=== PATIENT | female | born 1980 | race Caucasian/White ===

== ENCOUNTER 2018-03-12 22:00 | Emergency (ER) | payer SELFPAY ==
[~2018-03-12] VITALS: Ht 154.9 cm; Wt 50.0 kg
[~2018-03-12 22:00] MED LIST: AMOXICILLIN/CLA1 TA1; ATIVAN 0.50.5 MG/TAB PO; CALCIUM 500500 M2 PO; CELEXA10 MG PO; CLARITIN 1010 MG/TAB PO; DUO-KAPS1 CAP PO; EPIPEN 2-PAK1 MG/ML IM; FOLIC ACID 11 MG/TA1 PO; HYDROCODONE/APAP; IBU-TAB800 MG PO; K-DUR 10 MEQ T10 MEQ PO; K-DUR20 MEQ PO; LEXAPRO20 MG PO; LIBRIUM 25M25 MG/CAP PO; MULTIVITAMIN FO1 CAP PO; NEXIUM 40MG40 MG PO; NO HOME MEDICATIONS; NORCO 325 MG-7.1 TAB PO; OXYCODONE5 MG PO; PERCOCET 325 MG1 TAB PO; PHENERGAN 25 TA25 MG PO; PREDNISONE20 MG PO; PRENATAL PO; THIAMINE 1100 MG/TAB PO; TRANSDERM0.33 MG/24 TD; VITAMIN B COMPL1 T16 PO; XANAX 0.5MG0.5 MG PO
[2018-03-12 22:03] VITALS: TEMP 97
[2018-03-12 22:37] LABS: BASO % 0.8 % (0.0-2.0); EOS % 0.6 % (0-4.0); GRAN # 2.4 (1.4-6.5); GRAN % 46.6 % (42.2-75.2); HEMATOCRIT 42.5 % (37.0-47.0); HEMOGLOBIN 14.7 g/dl (12.5-16.0); LYMPH # 2.2 (1.2-3.4); LYMPH % 43.9 % (20.0-51.0); MEAN CELL VOLUME 91 fl (80.0-100.0); MEAN CORPUSCULAR HEMOGLOBIN 32 pg (27.0-31.0); MEAN CORPUSCULAR HGB CONC 35 g/dl (33.0-37.0); MEAN PLATELET VOLUME 9.8 fl (7.4-10.4); MONO # 0.4 (0.1-0.6); MONO % 7.9 % (1.7-9.3); PLATELET COUNT 229 K/mm3 (130-400); RED BLOOD COUNT 4.67 M/mm3 (4.10-5.30); REDCELL DISTRIBUTION WIDTH-CV 12.9 % (11.5-14.5)
[2018-03-12 22:49] LABS: ALBUMIN 4.4 gm/dL (3.5-5.0); BILIRUBIN,TOTAL 0.2 mg/dL (0.0-1.0); CALCIUM 8.2 mg/dL (8.4-10.2); CREATININE, serum 0.5 mg/dL (0.52-1.25); POTASSIUM 3.4 mmol/L (3.4-5.0); TOTAL PROTEIN 7.3 gm/dL (6.4-8.2)
[2018-03-12 23:05] LABS: PROLACTIN 12.9 ng/mL (3.0-18.6)
[2018-03-13 14:52] VITALS: BP 135/87; PULSE 109
== END 2018-03-13 14:53 | disposition home or self-care (01) ==
LOC: COL.ER 22:00
PROVIDERS: Emergency Medicine; Physician Assistant
DX: F10.129 Alcohol abuse with intoxication, unspecified (principal); Y90.8 Blood alcohol level of 240 mg/100 ml or more
CPT/HCPCS: J2060; J2405; J3411; J3475; J7030